=== PATIENT | female | born 1990 | race African-American/Black ===

== ENCOUNTER 2018-07-10 15:06 | Emergency (ER) | payer MEDICAID, OTHER ==
[~2018-07-10] VITALS: Ht 165.1 cm; Wt 96.0 kg
[2018-07-10] MEDS ORDERED: FENTANYL CITRATE/PF 50MCG/ML 2ML VIAL IV ONE (15:45)
[2018-07-10] MEDS ORDERED: ONDANSETRON HCL 4MG/2ML INJ IV STA (15:45)
[2018-07-10] MEDS ORDERED: SODIUM CHLORIDE 0.9% 1,000 ML IV ONE (15:45)
[2018-07-10 16:53] LABS: BASOPHILS % 0.6 % (0.0-2.0); EOSINOPHILS % 1.8 % (0.0-5.0); HEMATOCRIT. 33.8 % (36.0-48.0); MEAN CORPUSCULAR HEMOGLOBIN 29.1 pg (28.0-32.0); MEAN CORPUSCULAR VOLUME 81.8 fL (81.0-99.0); MEAN PLATELET VOLUME 11.1 fl (7.4-10.4); MONOCYTES % 6.7 % (2.0-8.0); NEUTROPHILS % 61.9 % (40.0-76.0); PLATELET 102 x1000/uL (130-400); RED BLOOD CELL COUNT 4.13 mill/uL (4.2-5.4)
[2018-07-10 16:54] LABS: CHLORIDE 109 mEq/L (98-107)
[2018-07-10 16:58] LABS: HCG SCREEN NEGATIVE
[2018-07-10 16:59] LABS: ETHANOL BLOOD < 10 mg/dL
[2018-07-10 17:01] LABS: INR 1.1; PROTHROMBIN TIME 10.6 sec (9.1-11.1)
[2018-07-10 18:18] LABS: CLARITY URINE CLEAR (CLEAR); COLOR URINE YELLOW (YELLOW); KETONES URINE NEGATIVE (NEGATIVE); LEUKOCYTE ESTERASE URINE NEGATIVE (NEGATIVE); NITRITE URINE NEGATIVE (NEGATIVE); OCCULT BLOOD URINE 2+ (NEGATIVE); PROTEIN URINE NEGATIVE (NEGATIVE)
[2018-07-10 18:34] LABS: *AMPHETAMINES SCREEN URINE NEGATIVE (NEGATIVE); *BARBITURATES SCREEN URINE NEGATIVE (NEGATIVE)
[2018-07-10 18:36] LABS: *BENZODIAZEPINES SCREEN URINE NEGATIVE (NEGATIVE); *COCAINE SCREEN URINE NEGATIVE (NEGATIVE); CANNABINOID URINE SCREEN NEGATIVE (NEGATIVE); METHADONE URINE SCREEN NEGATIVE (NEGATIVE); OPIATES URINE SCREEN NEGATIVE (NEGATIVE)
[2018-07-10 18:37] LABS: PHENCYCLIDINE URINE SCREEN NEGATIVE (NEGATIVE)
[2018-07-10] MEDS ORDERED: KETOROLAC 30MG/ML VIAL IV ONE (19:15)
[2018-07-10 20:02] VITALS: BP 109/64
== END 2018-07-10 20:51 | disposition home or self-care (01) ==
LOC: ER 15:06
DX: N83.202 Unspecified ovarian cyst, left side (principal); R10.32 Left lower quadrant pain; J45.909 Unspecified asthma, uncomplicated; D57.1 Sickle-cell disease without crisis; R03.0 Elevated blood-pressure reading, without diagnosis of hypertension
CPT/HCPCS: 36415; 71045; 74176; 80053; 80305; 81003; 81025; 83690; 83880; 84484; 84703; 85025; 85044; 85610; 86850; 86900; 86901; 96374; 96375; 99284; G0482; J1885; J2405; J3010; J7030